=== PATIENT | female | born 1975 | race Caucasian/White ===

== ENCOUNTER 2016-08-08 19:52 | Inpatient (IN) | payer BC ==
[~2016-08-08] VITALS: Ht 170.2 cm; Wt 103.0 kg
[2016-08-08] MEDS ORDERED: ONDANSETRON 2 MG/ML (Z0FRAN) 2 ML VIAL IV ONE (20:30)
[2016-08-08] MEDS ORDERED: diphenhydrAMINE 50 MG/ML INJ (BENADRYL) IV ONE (20:30)
[2016-08-08 20:41] LABS: BASOPHILS % (AUTO) 0 % (0-2); EOSINOPHILS % (AUTO) 0 % (0-4); LYMPHOCYTES # (AUTO) 1.2 X10^3; MEAN CORPUSCULAR HEMOGLOBIN 30.9 PG (26.0-34.0); MEAN CORPUSCULAR VOLUME 91 FL (80-100); MEAN PLATELET VOLUME 11.1 FL (6.0-9.5); MONOCYTES # (AUTO) 0.9 X10^3; MONOCYTES % (AUTO) 7 % (3-11); NEUTROPHILS # (AUTO) 9.6 X10^3; NEUTROPHILS % (AUTO) 82 % (51-67); PLATELET COUNT 280 10^3uL (150-450); WHITE BLOOD COUNT 11.69 10^3uL (4.0-11.0)
[2016-08-08 20:46] LABS: ALBUMIN 4.4 g/dL (3.4-5.0); ANION GAP 15.5 MEQ/L (3-15); CALCULATED IONIZED CALCIUM 4.1 mg/dL (3.8-4.6); TOTAL PROTEIN 7.5 g/dL (6.4-8.5)
[2016-08-08 21:10] LABS: BILIRUBIN,URINE Negative (Negative); CLARITY,URINE Clear; COLOR,URINE Yellow; GLUCOSE, URINE (UA) Negative (Negative); LEUKOCYTE ESTERASE ,URINE Negative (Negative); UROBILINOGEN,URINE 0.2 mg/dL (0.2-1.0)
[2016-08-08] MEDS ORDERED: LORazepam 2 MG/ML (ATIVAN) 1 ML VIAL IV ONE (21:15)
[2016-08-08] MEDS ORDERED: HYDROmorphone 1 MG/ML (DILAUDID) SYRINGE IV ONE ×2 (21:15→23:20)
[2016-08-08 21:16] LABS: RBC,URINE 0-2 /HPF; URINE CENTRIFUGED VOLUME 12 mL
--- NOTE | 2016-08-08 21:52 | NUR ---
PATIENT REFUSING TO HAVE AUTOMATIC BP CUFF ON. SHE STATES, " IT HURTS TOO BAD.
--- NOTE | 2016-08-08 22:30 | NUR ---
PATIENT RESTING WITH EYES CLOSED.
--- NOTE | 2016-08-08 23:45 | NUR ---
Patient admitted to room per wheelchair from ED. Is alert and oriented. Affect flat. States still having abdominal pain. No emesis since Zofran administered in ED. Alert and oriented. Abdomen soft and tender. Patient stated after she ate pizza and wings tonight became sick. No other family members ill, stated they ate different pizza. Patient is to have Back Surgery this month on the . Family here with patient. Call light within reach.
[2016-08-08 23:54] VITALS: BP 143/68
[2016-08-08 23:56] VITALS: BP 143/68
--- NOTE | 2016-08-09 00:25 | NUR ---
Dr Harman spoke with patient and assessment completed via Tele Doc. Orders obtained.
[2016-08-09 00:38] VITALS: BP 143/68
[2016-08-09] MEDS: HYDROmorphone 1 MG/ML (DILAUDID) SYRINGE IV PRN ×6 (00:38→22:59)
[2016-08-09] MEDS: D5 1/2 NS W/KCL 20 MEQ/L 1,000 ML IV SCH ×2 (00:38→08:51)
--- NOTE | 2016-08-09 00:38 | NUR ---
IV hung and infusing via pump at 125 cc an hour. Dilaudid 1mg administered IV for mid abdominal discomfort.
[2016-08-09] MEDS ORDERED: ONDANSETRON 4 MG (ZOFRAN) ORAL DISSOLVE TAB PO PRN (01:10)
--- NOTE | 2016-08-09 01:30 | NUR ---
Patient resting with eyes closed. Son staying the night.
[2016-08-09] MEDS: ONDANSETRON 2 MG/ML (Z0FRAN) 2 ML VIAL IV PRN ×2 (02:45→09:48)
--- NOTE | 2016-08-09 02:45 | NUR ---
Zofran 4mg administered per request for nausea. No emesis. Rests well.
--- NOTE | 2016-08-09 03:55 | NUR ---
Dilaudid 1mg administered per patient request for abdominal discomfort. IV patent at 125 cc an hour.
[2016-08-09 04:41] VITALS: BP 136/74
[2016-08-09 06:00] LABS: BASOPHILS % (AUTO) 0 % (0-2); EOSINOPHILS # (AUTO) 0.1 10^3uL; EOSINOPHILS % (AUTO) 1 % (0-4); LYMPHOCYTES # (AUTO) 1.6 X10^3; MEAN CORPUSCULAR HEMOGLOBIN 31.3 PG (26.0-34.0); MEAN CORPUSCULAR HGB CONC 34.2 g/dL (31.0-37.0); MEAN CORPUSCULAR VOLUME 92 FL (80-100); MEAN PLATELET VOLUME 11.1 FL (6.0-9.5); MONOCYTES # (AUTO) 1.1 X10^3; MONOCYTES % (AUTO) 11 % (3-11); NEUTROPHILS # (AUTO) 6.9 X10^3; NEUTROPHILS % (AUTO) 71 % (51-67); PLATELET COUNT 239 10^3uL (150-450); WHITE BLOOD COUNT 9.77 10^3uL (4.0-11.0)
--- NOTE | 2016-08-09 06:07 | NUR ---
Patient rested at long intervals tonight. Dilaudid did relieve abdominal discomfort during the night. Zofran administered x one tonight. No emesis tonight. Call light within reach.
[2016-08-09 06:50] LABS: ALBUMIN 3.8 g/dL (3.4-5.0); ANION GAP 10.6 MEQ/L (3-15); TOTAL PROTEIN 6.6 g/dL (6.4-8.5)
[2016-08-09 07:28] VITALS: BP 106/58
--- NOTE | 2016-08-09 07:56 | NUR ---
NUTRITION ASSESSMENT Level 1 Patient: Astrid Lackey Age/Sex: 41/F Date Screened: 08-09-16 Weight: 226.6#/103 kg Height: 67 inches Primary Diagnosis: abdominal pain/pancreatitis Diet Order: NPO Relevant labs: glucose 107, lipase 67 (534 on admission) Food allergies: N Nutrition Assessment Criteria Age over 80: N Body Mass Index (BMI) under 19: N Admission Screening Indicates Risk? N Moderate/High Risk Diagnosis: 3 points TPN or PPN: N NPO or clear liquid diet: Yes Serum Glucose <70 or >180: N Hgb A1c >6.7: N/A Total: 3 points Risk Screen: __ Patient at low nutritional risk based on available data; reevaluate in 5-7 days _X_ Patient at moderate nutritional risk based on available data; reevaluate in 3-5 days __ Patient at high nutritional risk; complete Nutrition Assessment within 48 hours of admission. Comments: Patient denied weight changes; normally healthy but had episode severe abdominal pain with n/v. Will reassess as documented above.
[2016-08-09] MEDS ORDERED: NS FLUSH 3 ML PRN IV (08:10)
[2016-08-09] MEDS: ENOXAPARIN 40 MG/0.4 ML (LOVENOX) SYR SC SCH (08:52)
[2016-08-09] MEDS ORDERED: PANTOPRAZOLE IV 40 MG in SODIUM CHLORIDE FLUSH 10 ML IV SCH (09:00)
[2016-08-09] MEDS: NS FLUSH 3 ML DAILY IV SCH (09:00)
[2016-08-09] MEDS: KETOROLAC 15 MG/ML (TORADOL) 1 ML VIAL IV PRN ×3 (09:48→22:07)
[2016-08-09] MEDS: oxyCODONE ER 20 MG (OxyCONTIN CR) TAB PO SCH ×2 (09:50→22:01)
--- NOTE | 2016-08-09 13:43 | NUR ---
PRN Dilaudid given at this time for c/o abd pain rated 7/10. Pt rests in bed, watching TV at this time. Son at bedside. IVF infusing with no difficulty. Pt denies other needs.
--- NOTE | 2016-08-09 14:37 | NUR ---
MULTIDISCIPLINARY MTG/DR. GAO: Pt. admitted with epigastric pain and abdominal pain. KUB was unremarkable. Pt. will possibly have a CT today. Pt. will remain NPO and has IVF running. No discharge needs identified at this time.
--- NOTE | 2016-08-09 15:57 | NUR ---
PRN Toradol given at this time for pain rated 7/10. Denies other needs.
--- NOTE | 2016-08-09 17:23 | NUR ---
Pt up ad homer to RR. Skin warm, dry, intact. Resprs nonlabored, even on RA. Advanced to FL diet. Needing stool specimen, pt states "I haven't eaten in days, I can't poop!". Informed pt we will get the sample whenever she can provide it. SL intact. Pt denies needs.
--- NOTE | 2016-08-09 17:58 | NUR ---
MED REC COMPLETE--current list obtained from medication list provided by patient's PCP, patient report, and external med history application. Patient's home medications of Leflunomide & Hydroxychloroquine are on hold until after scheduled surgery. ordered home medication of Naloxegol to be given while in hospital. Patient's son to bring in medication and will be ID'd by pharmacy when medication available.
[2016-08-09] MEDS: NALOXEGOL 25 MG PO SCH ×2 (18:30→20:30)
--- NOTE | 2016-08-09 20:00 | NUR ---
Resting in bed on left side. Denies pain or nausea at this time. Affect remains flat. Is a little more talkative this evening. States abdominal pain is intermittent. Comfortable at present. No family with patient at this time. Call light within reach.
[2016-08-09] MEDS ORDERED: PRAMIPEXOLE 1 MG PO SCH (21:00)
[2016-08-09] MEDS: NS FLUSH 10 ML PRN IV ×2 (22:07→23:00)
--- NOTE | 2016-08-09 22:59 | NUR ---
Dilaudid 1mg administered IV for abdominal discomfort of 03/19. Denies any nausea. Voids without difficulty. Taking fluids without nausea. No other concerns at his time.
[2016-08-10] VITALS: BP 134/73
[2016-08-10] MEDS: HYDROmorphone 1 MG/ML (DILAUDID) SYRINGE IV PRN ×2 (03:14→08:26)
[2016-08-10] MEDS: NS FLUSH 10 ML PRN IV ×3 (03:14→13:19)
--- NOTE | 2016-08-10 03:15 | NUR ---
Rested well since last pain medication dose given. Denies nausea. Dilaudid 1mg administered IV for abdominal pain, again states 03/19. Call light within reach.
--- NOTE | 2016-08-10 06:03 | NUR ---
Resting at long intervals tonight. No nausea or emesis. Continues to have a flat affect at times. Other times will visit some with staff. Comfortable at present time. Calls for assistance when needed.
[2016-08-10 06:22] LABS: BASOPHILS % (AUTO) 1 % (0-2); EOSINOPHILS # (AUTO) 0.2 10^3uL; EOSINOPHILS % (AUTO) 3 % (0-4); LYMPHOCYTES # (AUTO) 1.4 X10^3; MEAN CORPUSCULAR HGB CONC 34.4 g/dL (31.0-37.0); MEAN CORPUSCULAR VOLUME 91 FL (80-100); MONOCYTES # (AUTO) 0.7 X10^3; MONOCYTES % (AUTO) 11 % (3-11); NEUTROPHILS # (AUTO) 3.5 X10^3; NEUTROPHILS % (AUTO) 60 % (51-67); PLATELET COUNT 213 10^3uL (150-450); WHITE BLOOD COUNT 5.76 10^3uL (4.0-11.0)
[2016-08-10 06:45] LABS: ALBUMIN 3.5 g/dL (3.4-5.0); ANION GAP 11.7 MEQ/L (3-15); CALCULATED IONIZED CALCIUM 4.3 mg/dL (3.8-4.6); TOTAL PROTEIN 6.3 g/dL (6.4-8.5)
[2016-08-10 06:46] LABS: MEAN CORPUSCULAR HEMOGLOBIN 31.4 PG (26.0-34.0)
[2016-08-10 07:43] VITALS: BP 134/72
[2016-08-10] MEDS: oxyCODONE ER 20 MG (OxyCONTIN CR) TAB PO SCH (08:46)
[2016-08-10] MEDS: NALOXEGOL 25 MG PO SCH (08:46)
[2016-08-10] MEDS: ENOXAPARIN 40 MG/0.4 ML (LOVENOX) SYR SC SCH (08:46)
[2016-08-10] MEDS: NS FLUSH 3 ML DAILY IV SCH (08:47)
[2016-08-10] MEDS ORDERED: ATENOLOL 50 MG (TENORMIN) TAB PO SCH (09:00)
[2016-08-10] MEDS ORDERED: predniSONE 5 MG (DELTASONE) TABLET PO SCH (09:00)
[2016-08-10] MEDS ORDERED: HYDROXYCHLOROQUINE 200 MG (PLAQUENIL) TAB PO SCH (09:00)
[2016-08-10] MEDS ORDERED: CITALOPRAM 20 MG (CELEXA) TABLET PO SCH (09:00)
[2016-08-10] MEDS ORDERED: FLUTICASONE NASAL 50 MCG/SPRAY (FLONASE) 16 GM BTL NS SCH (09:00)
[2016-08-10] MEDS: KETOROLAC 15 MG/ML (TORADOL) 1 ML VIAL IV PRN (13:18)
--- NOTE | 2016-08-10 15:51 | NUR ---
Discharge order received. IV discontinued with catheter intact. No redness or swelling noted insertion site. Instructions provided with verbal and written understanding expressed. Dismissed ambulatory to private car accompanied by MAIL AGENT. No further needs.
[2016-08-10] MEDS ORDERED: traZODone 50 MG (DESYREL) TABLET PO SCH (21:00)
[2016-08-10] MEDS ORDERED: ATORVASTATIN 10 MG (LIPITOR) TABLET PO SCH (21:00)
[2016-08-10] MEDS ORDERED: clonazePAM 0.5 MG (KlonoPIN) TAB PO SCH (21:00)
== END 2016-08-10 15:51 | disposition home or self-care (01) | DRG 392 ==
LOC: ED 19:54 → UNDOADMOB 23:27 → MED/SURG 23:27 → INTOOBSV 23:54 → OBSVTOIN 23:54 → UNDODISIN 08-10 15:51
PROVIDERS: ADMIT Internal Medicine; ATTEND Internal Medicine
DX: K52.9 Noninfective gastroenteritis and colitis, unspecified (principal); G89.29 Other chronic pain; I10 Essential (primary) hypertension; F41.8 Other specified anxiety disorders; M06.9 Rheumatoid arthritis, unspecified; E78.5 Hyperlipidemia, unspecified; E66.9 Obesity, unspecified; Z68.35 Body mass index [BMI] 35.0-35.9, adult; F90.9 Attention-deficit hyperactivity disorder, unspecified type; D39.8 Neoplasm of uncertain behavior of other specified female genital organs; Z90.49 Acquired absence of other specified parts of digestive tract; Z98.1 Arthrodesis status
CPT/HCPCS: 36415; 74000; 74178; 80053; 81003; 81015; 83520; 83690; 84703; 85025; 86140; 86255; 96361; 96374; 96375; 96376; 99282; 99284

== ENCOUNTER → 2016-08-11 | Outpatient (CLI) | payer BC ==
[~2016-08-11] MED LIST: ACHYD1T PO; AMIT10TA6 PO; ATN50T PO; ATOM25CA PO; ATOR20TA54 PO; AZIT250T81 PO; CEPH-507 PO; CHOL500049 PO; CIPR-226 PO; CLON0.5T3 PO; CPR500T PO; DICY10CA26 PO; DULO30CA PO; ESCI20TA39 PO; ETAN50PE SQ; FLUT16SP; FLUT16SP NSEACH; GBPN300C PO; HC2.5C30 TOP; HDR4T; HYDR-2013 PO; HYDR-3702 PO; HYDR-3754 PO; HYDR-3811 PO; HYDR-3881 PO; HYDROXYSUT PO; IBUP-65 PO; LEFL20TA18 PO; LORA-102 PO; LORA0.5T PO; LURA20TA PO; METH27TA8 PO; METR500T17 PO; NALO25TA PO; NAPR550T PO; NF-CIPDEC LEFT EAR; ONDA4TAB8 PO; ONDAN4ODT PO; OXC20TCR; OXYC1TAB12 PO; OXYC1TAB8 PO; OXYC30TA80 PO; OXYC40TA53 PO; PHEN-452 PO; PRAM1TAB5; PRD5T PO; PROM25SU10 PR; PROM25TA5 PO; PRV20T PO; SUCR1TAB29 PO; SUVO10TA; TOPI50CA5 PO; TOPI50TA37 PO; TRAM-25 PO; TRAZ-28; TRAZ-28 PO; VILA40TA PO; [UNRECOGNIZED DRUG - CODE]
== END ==
LOC: LAB 14:02
PROVIDERS: ATTEND Internal Medicine
DX: K52.9 Noninfective gastroenteritis and colitis, unspecified (principal)
CPT/HCPCS: 83630; 87507

== ENCOUNTER 2016-08-16 13:02 | Inpatient (IN) | payer BC ==
[~2016-08-16] VITALS: Ht 170.2 cm; Wt 102.1 kg
[2016-08-16] MEDS ORDERED: HYDROmorphone 1 MG/ML (DILAUDID) SYRINGE IV ONE ×2 (15:10→22:30)
[2016-08-16] MEDS ORDERED: ONDANSETRON 2 MG/ML (Z0FRAN) 2 ML VIAL IV ONE (15:10)
[2016-08-16 15:18] LABS: BASOPHILS % (AUTO) 0 % (0-2); EOSINOPHILS # (AUTO) 0.2 10^3uL; EOSINOPHILS % (AUTO) 2 % (0-4); LYMPHOCYTES # (AUTO) 2.1 X10^3; MEAN CORPUSCULAR HEMOGLOBIN 30.3 PG (26.0-34.0); MEAN CORPUSCULAR HGB CONC 33.2 g/dL (31.0-37.0); MEAN CORPUSCULAR VOLUME 91 FL (80-100); MEAN PLATELET VOLUME 11.4 FL (6.0-9.5); MONOCYTES # (AUTO) 1.2 X10^3; MONOCYTES % (AUTO) 11 % (3-11); NEUTROPHILS # (AUTO) 6.9 X10^3; NEUTROPHILS % (AUTO) 66 % (51-67); PLATELET COUNT 287 10^3uL (150-450); WHITE BLOOD COUNT 10.43 10^3uL (4.0-11.0)
[2016-08-16 15:25] LABS: ALBUMIN 4.3 g/dL (3.4-5.0); ANION GAP 15.3 MEQ/L (3-15); CALCULATED IONIZED CALCIUM 4.1 mg/dL (3.8-4.6); TOTAL PROTEIN 7.5 g/dL (6.4-8.5)
[2016-08-16] MEDS: SODIUM CHLORIDE FLUSH 3 ML SYR IV PRN ×3 (15:34→19:10)
[2016-08-16] MEDS ORDERED: KETOROLAC 30 MG/ML (TORADOL) 1 ML VIAL IV ONE (16:15)
[2016-08-16] MEDS ORDERED: diphenhydrAMINE 50 MG/ML INJ (BENADRYL) IV ONE ×2 (17:35→18:45)
[2016-08-16] MEDS ORDERED: LORazepam 2 MG/ML (ATIVAN) 1 ML VIAL IV ONE ×2 (17:35→18:45)
[2016-08-16] MEDS ORDERED: HALOPERIDOL 5 MG/ML (HALDOL) 1 ML AMP IV ONE (19:45)
--- NOTE | 2016-08-16 20:23 | NUR ---
PATIENT ACTING RESTLESS, REFUSES TO LEAVE BP CUFF ON, REFUSES TO LEAVE SPO2 SENSOR ON. VERBALIZES NOT BEING ABLE TO PROVIDE URINE SPECIMEN AT THIS TIME.
[2016-08-16] MEDS ORDERED: HYDROmorphone 2 MG/ML (DILAUDID) 1 ML SYRINGE ONE (20:33)
[2016-08-16] MEDS ORDERED: HYDROmorphone 2 MG/ML (DILAUDID) 1 ML SYRINGE IV ONE (20:35)
[2016-08-16] MEDS: SODIUM CHLORIDE FLUSH 10 ML SYR IV PRN (20:36)
--- NOTE | 2016-08-16 22:35 | NUR ---
PATIENT REPORT TO Wendy GUTHRIE RN WHO ASSUMES CARE OF PATIENT.
--- NOTE | 2016-08-16 22:39 | NUR ---
PATIENT REPORT TO Wendy ELLISON RN WHO NOW ASSUMES CARE OF PATIENT.
[2016-08-17] VITALS (7 sets, daily range): BP systolic 118–139; BP diastolic 74–88
[2016-08-17] MEDS ORDERED: CIPROFLOXACIN 400 MG/200 ML 200 ML IV ONE (00:25)
--- NOTE | 2016-08-17 01:00 | NUR ---
cipro not available -called sales service supervisor
[2016-08-17] MEDS ORDERED: ACETAMINOPHEN 325 MG TAB (TYLENOL) PO PRN (01:15)
[2016-08-17] MEDS ORDERED: POTASSIUM CHLORIDE ER 10 MEQ CAPSULE PO ONE (01:20)
--- NOTE | 2016-08-17 01:20 | NUR ---
PT'S BP APPEARED EXTREMELY LOW ON AUTOMATIC BP MONITOR. CHECKED ON PATIENT- AND PERFORMED MANUAL BP = 120/80. PATIENT CHANGED TO A DIFFERENT AUTOMATIC BP MONITOR AND BP APPEAR NORMAL AT 121/80, 70. MADE AWARE OF FINDINGS.
--- NOTE | 2016-08-17 02:02 | NUR ---
REPORT GIVEN TO JOSE PANG
--- NOTE | 2016-08-17 02:18 | NUR ---
Patient admitted to room 306 at this time. Reports pain 01/17. See Admission Assessment part 1 & 2. LR, Flagyl, and Hydromorphone given per order, see MAR. Patient eating popsicle. No needs at this time. Will continue to monitor.
[2016-08-17] MEDS: HYDROmorphone 1 MG/ML (DILAUDID) SYRINGE IV PRN ×5 (02:25→20:19)
[2016-08-17] MEDS: LACTATED RINGERS 1,000 ML IV SCH ×2 (02:27→14:48)
[2016-08-17] MEDS: ONDANSETRON 2 MG/ML (Z0FRAN) 2 ML VIAL IV PRN ×3 (02:39→19:40)
--- NOTE | 2016-08-17 06:21 | NUR ---
Patient resting in bed since admission without needs. Has only required 1 dose of Dilaudid since admission. No needs at this time.
[2016-08-17] MEDS: ACIDOPHILUS/LACTOBACILLUS SPOROGENES 1 TABLET PO SCH (09:02)
--- NOTE | 2016-08-17 09:09 | NUR ---
Resting soundly, snoring in bed upon assessment. Pt requests pain and nausea medicine, rates abd pain 9/10. No facial grimacing or guarding noted. PRN Dilaudid and Zofran given per Roxanne Montes De Oca APRN instruction. Skin warm, dry, intact. Resprs nonlabored, even on RA. IVF infusing with no difficulty. Tolerating CL diet. Denies needs.
[2016-08-17] MEDS: CIPROFLOXACIN 400 MG/200 ML 200 ML IV SCH ×2 (11:11→20:18)
--- NOTE | 2016-08-17 12:26 | NUR ---
MED REC COMPLETED-current med list obtained from Ext Med History application, patient interview, and previous medication reconciliation from discharge.
[2016-08-17] MEDS: methylPREDNISolone 40 MG/ML (Solu-MEDROL) VIAL IV SCH (14:00)
[2016-08-17] MEDS: SODIUM CHLORIDE FLUSH 10 ML SYR IV PRN (14:00)
--- NOTE | 2016-08-17 15:27 | NUR ---
Resting with eyes closed. Resp regular. Calm.
--- NOTE | 2016-08-17 19:41 | NUR ---
Zofran 4 mg IV given for pt. report of nausea; "Anytime I try to drink or eat anything, I feel nauseated". Pt. had recently taken small drinks of H2O. Sprite provided. IVF infusing without difficulty. Call light within reach. Pt. appears slightly anxious; moves/wiggles feet frequently.
--- NOTE | 2016-08-17 19:50 | NUR ---
Pt. ambulates three laps around Med Surg hallway; steady/even gait.
[2016-08-17] MEDS: traZODone 50 MG (DESYREL) TABLET PO SCH (20:18)
--- NOTE | 2016-08-17 20:19 | NUR ---
Dilaudid 1 mg IV given for back/abd pain rated "5". Cipro currently infusing without difficulty; pt. states nausea has improved. Pt. watching tv. Call light within reach.
--- NOTE | 2016-08-17 23:27 | NUR ---
Tylenol 650 mg PO given for headache. Pt. has been dozing off and on; denies nausea.
[2016-08-18] MEDS: HYDROmorphone 1 MG/ML (DILAUDID) SYRINGE IV PRN ×8 (00:49→23:35)
--- NOTE | 2016-08-18 00:49 | NUR ---
Dilaudid 1 mg IV given for pain rated "9".
[2016-08-18] MEDS: LACTATED RINGERS 1,000 ML IV SCH ×3 (03:10→18:22)
--- NOTE | 2016-08-18 03:52 | NUR ---
Dilaudid 1 mg IV given for pain in head/back/abd rated "8".
[2016-08-18 03:58] VITALS: BP 126/67
[2016-08-18 05:36] LABS: BASOPHILS % (AUTO) 0 % (0-2); EOSINOPHILS % (AUTO) 0 % (0-4); LYMPHOCYTES # (AUTO) 0.9 X10^3; MEAN CORPUSCULAR HEMOGLOBIN 30.1 PG (26.0-34.0); MEAN CORPUSCULAR HGB CONC 33.2 g/dL (31.0-37.0); MEAN CORPUSCULAR VOLUME 91 FL (80-100); MEAN PLATELET VOLUME 10.9 FL (6.0-9.5); MONOCYTES # (AUTO) 0.8 X10^3; MONOCYTES % (AUTO) 9 % (3-11); NEUTROPHILS # (AUTO) 6.4 X10^3; NEUTROPHILS % (AUTO) 79 % (51-67); PLATELET COUNT 242 10^3uL (150-450); WHITE BLOOD COUNT 8.11 10^3uL (4.0-11.0)
[2016-08-18 06:08] LABS: ANION GAP 11.8 MEQ/L (3-15)
--- NOTE | 2016-08-18 06:40 | NUR ---
Pt. resting quietly in darkened room; appears to be in no distress. No loose stools or emesis during this last shift. Pt. has rated her pain at "5" for baseline. Call light and H2O within reach.
[2016-08-18 07:30] VITALS: BP 129/86
[2016-08-18] MEDS: ACIDOPHILUS/LACTOBACILLUS SPOROGENES 1 TABLET PO SCH (07:53)
--- NOTE | 2016-08-18 07:55 | NUR ---
Dilaudid 1 mg IV given for c/o GAONA pain - 12/17. States thinks needs to be back on Atenelol.
[2016-08-18] MEDS: CIPROFLOXACIN 400 MG/200 ML 200 ML IV SCH ×2 (08:41→21:09)
[2016-08-18] MEDS: methylPREDNISolone 40 MG/ML (Solu-MEDROL) VIAL IV SCH (08:41)
--- NOTE | 2016-08-18 11:05 | NUR ---
Dilaudid 1 mg IV given for c/o continued GAONA 11/17. Has been dozinig since last dilaudid injection.
[2016-08-18 11:14] VITALS: BP 131/77
[2016-08-18 11:44] LABS: BILIRUBIN,URINE Negative (Negative); CLARITY,URINE Clear; COLOR,URINE Yellow; GLUCOSE, URINE (UA) Negative (Negative); LEUKOCYTE ESTERASE ,URINE Negative (Negative); UROBILINOGEN,URINE 0.2 mg/dL (0.2-1.0)
[2016-08-18 12:24] LABS: HCG,QUALITATIVE URINE Negative (Negative); URINE CENTRIFUGED VOLUME 12 mL
[2016-08-18 12:45] VITALS: BP 170/81
--- NOTE | 2016-08-18 14:00 | NUR ---
Up to shower. Tolerated well. Alert and oriented. No c/o nausea. LR cont. at 100 cc/hr.
--- NOTE | 2016-08-18 14:55 | NUR ---
Pt. is back to bed from shower. Flagyl has been started. Pt. requests pain medication for back pain rated 7/10. She also reports abdominal pain at 5/10 and headache pain at 6/10. Dilaudid given, see EMAR.
[2016-08-18 15:20] VITALS: BP 127/80
[2016-08-18] MEDS: ONDANSETRON 2 MG/ML (Z0FRAN) 2 ML VIAL IV PRN (17:50)
--- NOTE | 2016-08-18 17:57 | NUR ---
Pt. anxious, stating her abdominal pain is 10/10 and feels like it did when she was admitted. Dilaudid and Zofran given per her request. Pt. had a medium, loose BM which was sent to lab.
[2016-08-18] MEDS ORDERED: PROMETHAZINE 25 MG/ML (PHENERGAN) 1 ML VIAL IM PRN (18:30)
[2016-08-18] MEDS ORDERED: HYDROmorphone 2 MG/ML (DILAUDID) 1 ML SYRINGE IV ONE (18:30)
--- NOTE | 2016-08-18 18:31 | NUR ---
Pt. states pain has not improved at all, continues to rate 10/10. She is anxious and tearful. She has also started to vomit into trash can. Dr. Ca notified and orders received for 25mg Phenergan IV or IM Q6H PRN and a one time dose of Dilaudid 2mg IV now.
[2016-08-18] MEDS ORDERED: SODIUM CHLORIDE 25 ML IV ONE (18:35)
[2016-08-18] MEDS: PROMETHAZINE HCL INJ 25 MG in SODIUM CHLORIDE 25 ML IV PRN (18:39)
--- NOTE | 2016-08-18 19:02 | NUR ---
Report given to JOSE Lopez to assume care of pt.
--- NOTE | 2016-08-18 19:10 | NUR ---
Pt is resting in bed on right side, alert and oriented x 4, Resp are even and nonlabored, LCTAB, HRRR, BS are active x 4 quadrants. Pt is anxious, constant tapping of hands and feet. Rates pain 5/10 at this time. Denies nausea or vomiting at this time. IV is infusing without difficulty, no redness, swelling, or s/s of infection noted at this time. Denies needs at this time. Call light is in reach, will continue to monitor.
[2016-08-18 19:19] VITALS: BP 132/79
[2016-08-18] MEDS: traZODone 50 MG (DESYREL) TABLET PO SCH (21:09)
--- NOTE | 2016-08-18 21:15 | NUR ---
Pt complains of pain to abdomen, rates 9/10 at this time. When going to administer Dilaudid IV,noted that IV had infiltrated. DC'd IV to LAC, cath is intact, applied ice pack to LAC at this time. Restarted IV 22g to RAC with minimal discomfort. Gave Dilaudid 1mg SIVP at this time. Started Cipro IV at this time. Denies further needs at this time. Call light in reach, will continue to monitor.
--- NOTE | 2016-08-18 23:35 | NUR ---
Pt complains of pain to abdomen, rates 8/10 at this time. Gave Dilaudid 1mg SIVP for discomfort. Will continue to monitor.
[2016-08-19] VITALS (10 sets, daily range): BP systolic 105–172; BP diastolic 56–92
--- NOTE | 2016-08-19 01:00 | NUR ---
Pt complains of nausea, give Phenergan IV in NS 25ml over 20 minutes. Will continue to monitor.
[2016-08-19] MEDS: PROMETHAZINE HCL INJ 25 MG in SODIUM CHLORIDE 25 ML IV PRN ×2 (01:04→07:43)
[2016-08-19] MEDS: LACTATED RINGERS 1,000 ML IV SCH (03:20)
--- NOTE | 2016-08-19 04:54 | NUR ---
Pt is resting in bed asleep at this time, Resp are even and nonlabored. Will continue to monitor.
--- NOTE | 2016-08-19 05:20 | NUR ---
Pt complains of abdominal pain, rates 8/10, gave Dilaudid 1mg SIVP for discomfort.
[2016-08-19] MEDS: HYDROmorphone 1 MG/ML (DILAUDID) SYRINGE IV PRN (05:21)
[2016-08-19] MEDS: ONDANSETRON 2 MG/ML (Z0FRAN) 2 ML VIAL IV PRN ×2 (05:36→18:44)
--- NOTE | 2016-08-19 05:37 | NUR ---
Pt is vomiting, give Zofran 4mg SIVP for nausea and vomiting. Will continue to monitor.
--- NOTE | 2016-08-19 06:20 | NUR ---
Pt continues to complains of severe pain 10/10 to abdomen and nausea and vomiting. Texted Dr. Ge at 0622, received call from Dr. Ge at 0627. Received verbal orders to increase Dilaudid 2mg IV q 2hr PRN for pain, Ativan 0.5mg IV q 6hrs PRN nausea/vomiting, Reglan 5mg IV q 6hr PRN nausea/vomiting, CBC, CMP, and Lipase. This RN administered Dilaudid 2mg SIVP and Ativan 0.5mg SIVP for pain and nausea. Will continue to monitor.
[2016-08-19] MEDS ORDERED: METOCLOPRAMIDE 10 MG/2 ML (REGLAN) VIAL IV PRN (06:25)
[2016-08-19] MEDS ORDERED: LORazepam 2 MG/ML (ATIVAN) 1 ML VIAL IV PRN (06:25)
[2016-08-19] MEDS ORDERED: HYDROmorphone 2 MG/ML (DILAUDID) 1 ML SYRINGE IV PRN ×2 (06:25→07:46)
[2016-08-19 07:13] LABS: MEAN CORPUSCULAR HEMOGLOBIN 30.5 PG (26.0-34.0); MEAN CORPUSCULAR HGB CONC 33.4 g/dL (31.0-37.0); MEAN CORPUSCULAR VOLUME 91 FL (80-100); MEAN PLATELET VOLUME 10.6 FL (6.0-9.5); PLATELET COUNT 251 10^3uL (150-450); WHITE BLOOD COUNT 8.79 10^3uL (4.0-11.0)
[2016-08-19 07:17] LABS: BAND NEUTROPHILS % 0 % (0-6); EOSINOPHILS % 0 % (0-4); LYMPHOCYTES # 2.3 #; MONOCYTES # 0.6 #; MONOCYTES % 8 % (3-11); RBC MORPH NORMAL (NORMAL); SEGMENTED NEUTROPHILS % 66 % (51-67); TOTAL CELLS COUNTED 100
--- NOTE | 2016-08-19 07:20 | NUR ---
400 cc light green emesis - sitting on edge of bed vomiting into blue bag. Shaking of arms and legs noted. States had a bad night with pain and nausea. Noted had a bag from [employer] - when asked, pt states ate a chicken sandwich. Informed is on a full liquid diet, and if is nauseatedshe should only take very small sips H2O until nausea subsides.
[2016-08-19 07:28] LABS: ALBUMIN 3.5 g/dL (3.4-5.0); CALCULATED IONIZED CALCIUM 4.5 mg/dL (3.8-4.6); TOTAL PROTEIN 5.9 g/dL (6.4-8.5)
--- NOTE | 2016-08-19 07:43 | NUR ---
Phenergan 25mg IV given for c/o nausea. Continues to shake, cries at times, States needs something for pain. Informed is too early for Dilaudid.
[2016-08-19] MEDS: ACIDOPHILUS/LACTOBACILLUS SPOROGENES 1 TABLET PO SCH (08:00)
--- NOTE | 2016-08-19 08:00 | NUR ---
Dr. Eva Chester notified of pt complaints and lack of pain control and nausea. Pt up ad homer in room.
[2016-08-19] MEDS ORDERED: SODIUM CHLORIDE IV PRN (08:25)
[2016-08-19] MEDS ORDERED: HYDROmorphone PCA 30 MG/30 ML (DILAUDID) VIAL IV PRN (08:25)
[2016-08-19] MEDS ORDERED: CLONIDINE 0.1 MG/24 HR TD ONE (08:25)
[2016-08-19] MEDS ORDERED: PROMETHAZINE HCL IV PRN (08:25)
[2016-08-19] MEDS: SODIUM CHLORIDE FLUSH 10 ML SYR IV PRN ×2 (08:30→09:31)
--- NOTE | 2016-08-19 09:15 | NUR ---
SHELL PLATER Dilaudid hooked up to IV and explained use to pt. Dilaudid 2 mg loading dose given. Restless and shaking of legs and arms continues. Other new orders from Dr. Eva Chester started.
[2016-08-19] MEDS: D5 IV SCH ×3 (09:23→20:59)
[2016-08-19] MEDS: KCL IV SCH ×3 (09:23→20:59)
[2016-08-19] MEDS: 1/2 NS IV SCH ×3 (09:23→20:59)
[2016-08-19] MEDS: methylPREDNISolone 40 MG/ML (Solu-MEDROL) VIAL IV SCH (09:24)
[2016-08-19] MEDS: CIPROFLOXACIN 400 MG/200 ML 200 ML IV SCH ×2 (09:31→20:43)
[2016-08-19] MEDS: PANTOPRAZOLE IV 40 MG in SODIUM CHLORIDE FLUSH 10 ML IV SCH ×2 (09:31→20:43)
--- NOTE | 2016-08-19 09:40 | NUR ---
Resting more quietly. Dozing off and on. No shaking noted. O2 put on at 1L as continuous pulse ox shows 89% at times on room air. O2 sats to mid 90's with 1L.
--- NOTE | 2016-08-19 10:50 | NUR ---
Has been dozing - awakens at nursing presence - states is feeling better. No shaking. O2 sats 94% with O2 at 1L. No further emesis.
--- NOTE | 2016-08-19 14:10 | NUR ---
Awake, states is feeling much better. Denies nausea and abd pain. Takes few sips water. Voided in bathroom - missed hat.
--- NOTE | 2016-08-19 18:00 | NUR ---
Takes a few sips of liquids from supper tray. States NITRATING ACID MIXER is controlling pain.
--- NOTE | 2016-08-19 18:45 | NUR ---
Zofran 4 mg given IV for c/o slight nausea since taking liquids at supper. No emesis since 9:00 a.m. Visiting with her children. Alert and oriented Continues to say MANAGED SERVICES CONSULTANT is controlling pain. Beginning to have some shaking in legs again. Resp. even with O2 on at 1L. Continuous pulse ox on - 94%.
[2016-08-19] MEDS: traZODone 50 MG (DESYREL) TABLET PO SCH (20:42)
--- NOTE | 2016-08-19 22:16 | NUR ---
Pt declines to wear pulse ox. "It's beeping too much." Noted that pt's heart rate ranges from 40-60s. O2 sat 94-98% on RA. Other vital signs remain stable. Will continue to monitor pt closely.
[2016-08-20] VITALS (9 sets, daily range): BP systolic 101–131; BP diastolic 52–79
--- NOTE | 2016-08-20 02:26 | NUR ---
Heart rate 50; o2 sat 94% on RA.
[2016-08-20] MEDS: ONDANSETRON 2 MG/ML (Z0FRAN) 2 ML VIAL IV PRN ×2 (06:02→11:18)
[2016-08-20 06:04] LABS: BASOPHILS % (AUTO) 0 % (0-2); EOSINOPHILS % (AUTO) 0 % (0-4); LYMPHOCYTES # (AUTO) 2.4 X10^3; MEAN CORPUSCULAR HEMOGLOBIN 30.4 PG (26.0-34.0); MEAN CORPUSCULAR HGB CONC 32.7 g/dL (31.0-37.0); MEAN CORPUSCULAR VOLUME 93 FL (80-100); MEAN PLATELET VOLUME 10.5 FL (6.0-9.5); MONOCYTES % (AUTO) 12 % (3-11); NEUTROPHILS # (AUTO) 4.7 X10^3; NEUTROPHILS % (AUTO) 58 % (51-67); PLATELET COUNT 222 10^3uL (150-450); WHITE BLOOD COUNT 8.15 10^3uL (4.0-11.0)
--- NOTE | 2016-08-20 06:16 | NUR ---
Pt rests intermittently throughout the night. IVF with continuous MACHINE BANDER AND CELLOPHANER HELPER infusing w/o difficulty. States that MACHINE BANDER AND CELLOPHANER HELPER has kept her pain under control. Requests PRN zofran for nausea this morning. Resp even and non labored on RA; o2 sat 97%. Heart rate 51. No further needs at this time.
[2016-08-20 06:22] LABS: ANION GAP 9.6 MEQ/L (3-15)
--- NOTE | 2016-08-20 08:05 | NUR ---
Pt placed on ETCO2 monitor per protocol with RETAIL AND RESTAURANT ASSOCIATE. ETCO2 40, RR 14, HR 52, SPO2 96 on RA.
[2016-08-20] MEDS: ACIDOPHILUS/LACTOBACILLUS SPOROGENES 1 TABLET PO SCH (08:32)
--- NOTE | 2016-08-20 08:35 | NUR ---
Pt tolerated 25% Clear liquid diet. Denies n/v or increased abd pain. IV infiltrated and leaking from site- 22g dc'd from LAC- tip intact, site without bleeding. This nurse attempted x1 and Erin GARCIA from OB attempted x2. Warm packs placed to bilat arms- TJuany RN will attempt IV start.
[2016-08-20] MEDS: PANTOPRAZOLE IV 40 MG in SODIUM CHLORIDE FLUSH 10 ML IV SCH (09:00)
[2016-08-20] MEDS: methylPREDNISolone 40 MG/ML (Solu-MEDROL) VIAL IV SCH (09:00)
[2016-08-20] MEDS: CIPROFLOXACIN 400 MG/200 ML 200 ML IV SCH (09:01)
--- NOTE | 2016-08-20 09:01 | NUR ---
Angeli Velasquez RN successfully started 22g IV to [facility]- IVF and Dilaudid MOTION PICTURE DIRECTOR infusing as ordered. Cipro started now. Took pills with water without difficulty. Call light and MOTION PICTURE DIRECTOR button within reach.
[2016-08-20] MEDS: 1/2 NS IV SCH (10:16)
[2016-08-20] MEDS: D5 IV SCH (10:16)
[2016-08-20] MEDS: KCL IV SCH (10:16)
--- NOTE | 2016-08-20 10:23 | NUR ---
Dr. Maza at bedside
[2016-08-20] MEDS ORDERED: oxycODONE/ACETAMINOPHEN 10MG-325 MG (PERCOCET-10) TABLET PO PRN (10:45)
[2016-08-20] MEDS: NALOXEGOL 25 MG PO SCH (11:17)
[2016-08-20] MEDS: CITALOPRAM 20 MG (CELEXA) TABLET PO SCH (11:18)
[2016-08-20] MEDS: ATENOLOL 50 MG (TENORMIN) TAB PO SCH (11:18)
[2016-08-20] MEDS: KETOROLAC 15 MG/ML (TORADOL) 1 ML VIAL IV SCH ×3 (11:19→23:38)
--- NOTE | 2016-08-20 11:31 | NUR ---
Zofran 4mg IV given for premed before administration of home dose of Movantik- at pt request. Pt states that Movantik has been making her nauseous lately. ALso she requests to take with a cup of juice rather than straight water. Grape juice provided. Emesis bag in hand. Son at bedside, call light within reach.
--- NOTE | 2016-08-20 14:00 | NUR ---
Pt has been resting since lunch. ETCO2 monitor in place per [facility] protocol. While asleep: ETCO2 27, RR 14, O2 90% RA, HR 59.
[2016-08-20] MEDS: metroNIDAZOLE 500 MG (FLAGYL) TABLET PO SCH ×2 (14:18→20:53)
--- NOTE | 2016-08-20 14:26 | NUR ---
MULTIDISCIPLINARY MTG/DR. GAO: Pt. admitted for abdominal pain. CT is showing colitis. Pt. previous stool sample was negative for infection. Will obtain another stool sample for further testing. Pt. has an appointment on 08/27 to see a gastroenteritis. Pt. is receiving cipro and flagyl. Transition Pt. to oral antibiotics today. Pt. will remain on CLINICAL OPERATIONS SPECIALIST throughout the day and transition to her oral this evening. Advanced Pt. to full liquid diet. Pt. is improving. No discharge needs identified at this time.
[2016-08-20] MEDS ORDERED: HYDROmorphone 2 MG/ML (DILAUDID) 1 ML SYRINGE IV PRN (17:30)
[2016-08-20] MEDS: SODIUM CHLORIDE FLUSH 10 ML SYR IV PRN ×2 (17:36→23:38)
--- NOTE | 2016-08-20 17:40 | NUR ---
Dilaudid GIFT SHOP ASSISTANT dc'd at this time with Angeli Velasquez RN. Wasted amount= approx 8mg of Dilaudid. Pt denies pain, n/v.
[2016-08-20] MEDS: CIPROFLOXACIN (CIPRO) 500 MG TABLET PO SCH (20:53)
[2016-08-20] MEDS: oxyCODONE ER 40 MG (oxyCONTIN CR) TAB PO SCH (20:53)
[2016-08-20] MEDS: traZODone 50 MG (DESYREL) TABLET PO SCH (20:53)
[2016-08-20] MEDS ORDERED: clonazePAM 0.5 MG (KlonoPIN) TAB PO SCH (21:00)
[2016-08-20] MEDS ORDERED: ATORVASTATIN 10 MG (LIPITOR) TABLET PO SCH (21:00)
[2016-08-21 04:27] VITALS: BP 130/71
[2016-08-21] MEDS: metroNIDAZOLE 500 MG (FLAGYL) TABLET PO SCH (06:21)
[2016-08-21] MEDS: KETOROLAC 15 MG/ML (TORADOL) 1 ML VIAL IV SCH (06:23)
--- NOTE | 2016-08-21 06:24 | NUR ---
Pt rests intermittently throughout the night. Minimal complaints of pain; has been controlled with scheduled and PRN pain med; see AUG. SL intact. Resp even and non labored on RA. No needs at this time.
[2016-08-21 08:06] VITALS: BP 123/68
--- NOTE | 2016-08-21 08:31 | NUR ---
NUTRITION ASSESSMENT Level 1 Patient: Astrid Lackey Age/Sex: 41/F Date Screened: 08-21-16 Weight: 224.6#/102.1 kg Height: 67 inches Primary Diagnosis: abdominal pain/colitis Diet Order: surgical soft Relevant labs: H. pylori (pending), stool occult blood (-) Food allergies: N Nutrition Assessment Criteria Age over 80: N Body Mass Index (BMI) under 19: N Admission Screening Indicates Risk? 3 points Moderate/High Risk Diagnosis: 3 points TPN or PPN: N NPO or clear liquid diet: N Serum Glucose <70 or >180: N/A Hgb A1c >6.7: N/A Total: 6 points Risk Screen: __ Patient at low nutritional risk based on available data; reevaluate in 5-7 days __ Patient at moderate nutritional risk based on available data; reevaluate in 3-5 days _X_ Patient at high nutritional risk; complete Nutrition Assessment within 48 hours of admission.
[2016-08-21] MEDS: CITALOPRAM 20 MG (CELEXA) TABLET PO SCH (08:53)
[2016-08-21] MEDS: oxyCODONE ER 40 MG (oxyCONTIN CR) TAB PO SCH (08:53)
[2016-08-21] MEDS: ACIDOPHILUS/LACTOBACILLUS SPOROGENES 1 TABLET PO SCH (08:53)
[2016-08-21] MEDS: CIPROFLOXACIN (CIPRO) 500 MG TABLET PO SCH (08:53)
[2016-08-21] MEDS: methylPREDNISolone 40 MG/ML (Solu-MEDROL) VIAL IV SCH (08:56)
[2016-08-21] MEDS: NALOXEGOL 25 MG PO SCH (08:57)
[2016-08-21] MEDS ORDERED: predniSONE 5 MG (DELTASONE) TABLET PO SCH (09:00)
[2016-08-21] MEDS ORDERED: PANTOPRAZOLE 40 MG (PROTONIX) TAB PO SCH (09:00)
[2016-08-21] MEDS: ATENOLOL 50 MG (TENORMIN) TAB PO SCH (09:00)
--- NOTE | 2016-08-21 10:11 | NUR ---
Discharge instructions reviewed with patient, demonstrates understanding. SL removed with catheter tip intact. No redness or edema noted. Pressure held. Home med returned to pt. Belongings, home med, and DC packet sent with patient. Dismissed at this time via w/c accompanied by Rasheed Baum RN and spouse. Skin warm, dry, intact. Resprs nonlabored, even on RA.
--- NOTE | 2016-08-21 10:14 | NUR ---
Reviewed discharge medications with patient. Provided patient handout information for new medications. No additional questions or concerns. Patient verbalized understanding of medications. Returned home medication to patient.
== END 2016-08-21 10:11 | disposition home or self-care (01) | DRG 641 ==
LOC: ED 13:03 → MED/SURG 08-17 01:00
PROVIDERS: ADMIT Hospitalist; ATTEND Hospitalist
DX: E86.0 Dehydration (principal); K52.9 Noninfective gastroenteritis and colitis, unspecified; E87.6 Hypokalemia; M06.9 Rheumatoid arthritis, unspecified; G89.29 Other chronic pain; E66.9 Obesity, unspecified; I10 Essential (primary) hypertension; F32.9 Major depressive disorder, single episode, unspecified; F41.9 Anxiety disorder, unspecified; Z68.35 Body mass index [BMI] 35.0-35.9, adult; Z79.52 Long term (current) use of systemic steroids
CPT/HCPCS: 36415; 74178; 76705; 80048; 80053; 81003; 81015; 81025; 83690; 85007; 85025; 85027; 85652; 86140; 86677; 87507; 94760; 94762; 94770; 96361; 96374; 96375; 99284

== ENCOUNTER 2016-09-20 19:02 | Emergency (ER) | payer BC ==
[~2016-09-20] VITALS: Ht 170.2 cm; Wt 104.6 kg
[~2016-09-20 19:02] MED LIST changes: -NF-CIPDEC LEFT EAR
[2016-09-20] MEDS ORDERED: NF-CIPDEC LEFT EAR ×2 (19:26→19:29)
[2016-09-20 19:56] VITALS: BP 143/94
== END 2016-09-20 19:50 | disposition home or self-care (01) ==
LOC: ED 19:04
DX: H60.91 Unspecified otitis externa, right ear (principal)
CPT/HCPCS: 99282; 99283

== ENCOUNTER 2016-09-24 14:11 | Emergency (ER) | payer BC ==
[~2016-09-24] VITALS: Ht 170.2 cm; Wt 102.0 kg
[~2016-09-24 14:11] MED LIST changes: +NF-CIPDEC LEFT EAR
[2016-09-24] MEDS: DIAZEPAM 10 MG/2 ML (VALIUM) SYRINGE IM ONE ×2 (14:33→15:00)
[2016-09-24 15:29] VITALS: BP 118/83
== END 2016-09-24 15:25 | disposition home or self-care (01) ==
LOC: ED 14:12
DX: T40.2X5A Adverse effect of other opioids, initial encounter (principal); F11.988 Opioid use, unspecified with other opioid-induced disorder; G89.18 Other acute postprocedural pain; M54.5 Low back pain
CPT/HCPCS: 96372; 99282; J3360

== ENCOUNTER → 2016-10-10 | Outpatient (CLI) | payer BC ==
--- NOTE | 2016-10-10 18:06 | Diagnostic Imaging Report ---
INDICATION: Back pain AP, lateral, and oblique views of the lumbar spine are obtained. The lumbar vertebrae are normal in height and alignment. Patient has had previous laminectomy and posterior fusion at L5-S1 with pedicle screws. The screws appear intact. There is an L5-S1 disc prosthesis. Remaining discs appear unremarkable. IMPRESSION: Status post L5-S1 surgery with laminectomy and fusion as above. The alignment is anatomic. There is no acute bony abnormality. Dictated by: Dictated on workstation # [id number]
== END ==
LOC: RAD 13:55
PROVIDERS: ATTEND Family Medicine
DX: M54.5 Low back pain (principal)
CPT/HCPCS: 72110